=== PATIENT | female | born 1965 | race Caucasian/White ===

== ENCOUNTER 2021-03-16 08:08 | Emergency (ER) | payer BC, OTHER ==
[2021-03-16] MEDS ORDERED: IBUPROFEN 600 MG TABLET (FP) PO ONE ×2 (08:51→09:49)
[2021-03-16 09:15] VITALS: BP 122/65; PULSE 88; TEMP 98.6; BMI 20.6
== END 2021-03-16 09:54 | disposition home or self-care (01) ==
LOC: FER 08:08
DX: T81.72XA Complication of vein following a procedure, not elsewhere classified, initial encounter (principal); I80.9 Phlebitis and thrombophlebitis of unspecified site
CPT/HCPCS: 93971-TC; 99284-25

== ENCOUNTER 2021-11-22 14:42 | Emergency (ER) | payer OTHER ==
[2021-11-22 15:56] VITALS: BP 122/78; PULSE 78; TEMP 98.1; BMI 19.3
== END 2021-11-22 16:17 | disposition home or self-care (01) ==
LOC: FER 14:42
DX: J01.20 Acute ethmoidal sinusitis, unspecified (principal)
CPT/HCPCS: 99283-25